=== PATIENT | male | born 1980 | race Caucasian/White ===

== ENCOUNTER 2016-07-22 21:06 | Emergency (ER) | payer OTHER ==
[~2016-07-22] VITALS: Ht 175.3 cm; Wt 86.2 kg
[2016-07-22 21:25] VITALS: BP 133/80
== END 2016-07-22 23:06 | disposition home or self-care (01) ==
LOC: ER 21:10
DX: S91.052A Open bite, left ankle, initial encounter (principal); S81.052A Open bite, left knee, initial encounter; W54.0XXA Bitten by dog, initial encounter; Y93.89 Activity, other specified; Y99.8 Other external cause status; Y92.69 Other specified industrial and construction area as the place of occurrence of the external cause; Z88.6 Allergy status to analgesic agent